=== PATIENT | male | born 1990 | race Hispanic/Latino ===

== ENCOUNTER 2022-03-13 13:49 | Emergency (ER) | payer SELFPAY ==
--- NOTE | ~2022-03-13 | CT_ITS ---
EXAMINATION: CT abdomen pelvis w con DATE: 03/13/2022 17:21 INDICATION: Left lower quadrant abdominal pain and tenderness. TECHNIQUE: Computed tomography (CT) of the abdomen and pelvis was performed with 100 mL Omnipaque-350 intravenous contrast. Automated exposure control and iterative reconstruction technique were employe d. The dose-length product was 486.89 mGy-cm. COMPARISON: None FINDINGS: Mild dependent atelectasis in bilateral lower lobes. Heart size is normal. No pericardial or pleural effusion. Liver, gallbladder, spleen, pancreas, bilateral adrenal glands and kidneys are normal. Ravindra ls including the appendix are normal. Bladder is normal. Small fat-containing right inguinal hernia. No free intraperitoneal gas or fluid. No pathologically enlarged abdominal or pelvic lymphadenopathy. Likely benign nonaggressive appearing small lytic lesion with thin sclerotic margins along the anter oinferior right femoral neck with no endosteal scalloping, periosteal reaction or other aggressive fe atures. IMPRESSION: 1. No acute intra-abdominal/pelvic process. 2. Small fat-containing right inguinal hernia. Reviewed, dictated and finalized at location A. OFF PRESS OPERATOR
[2022-03-13 14:01] VITALS: BP 120/90; PULSE 65; RESP 18; TEMP 36.3; O2SAT 100
--- NOTE | 2022-03-13 16:16 | ED.ABDPAIN ---
HPI - Abdominal Pain General Chief Complaint: Abdominal Pain Stated Complaint: abd pain Time Seen by Provider: 03/13/22 16:05 History of Present Illness HPI narrative: 31-year-old male presenting with abdominal pain. Patient states that he has had intermittent left lower quadrant pain for the last year. Unfortunately, over the last several days he has had worsening of the pain and it is now constant. States that he has also had difficulty with initiating urination. He denies dysuria or hematuria. States that he has intermittent bloating as well. Reports some nausea but no vomiting, constipation, diarrhea, melena, hematochezia. No fevers, headache, chest pain, shortness of breath, cough, flank pain. Patient is Bruneian-speaking and history was obtained using the bean snipper. Related Data Allergies Allergy/AdvReac Type Severity Reaction Status Date / Time No Known Allergies Allergy Verified 03/13/22 14:06 Review of Systems Review of Systems: All systems reviewed & are unremarkable except as noted in HPI and below Exam Narrative: GENERAL: Well-appearing, well-nourished, and in no acute distress. HEAD: Normocephalic, atraumatic. EYES: PERRLA and EOMI. ENT: Nares clear, no rhinorrhea or epistaxis. Mucous membranes moist. NECK: Supple. CHEST: Clear to auscultation. No respiratory distress. HEART: Regular rate and rhythm. No murmur heard. Normal peripheral pulses. ABDOMEN: Soft, tenderness in left lower quadrant, nondistended, normal active bowel sounds. No CVA tenderness EXTREMITIES: Normal range of motion. No edema. SKIN: Warm, dry, no rash. NEURO: No focal deficits. Alert and oriented x3. PSYCH: Normal mood and affect. Course Vital Signs Vital signs: Vital Signs Temperature 97.4 F L 03/13/22 14:01 Pulse Rate 65 03/13/22 14:01 Respiratory Rate 18 03/13/22 14:01 Blood Pressure 120/90 03/13/22 14:01 Pulse Oximetry 100 03/13/22 14:01 Oxygen Delivery Room Air 03/13/22 14:01 Temperature 97.4 F L 03/13/22 14:01 Pulse Rate 58 L 03/13/22 16:30 Respiratory Rate 28 H 03/13/22 16:30 Blood Pressure 138/81 03/13/22 16:30 Pulse Oximetry 98 03/13/22 16:30 Oxygen Delivery Room Air 03/13/22 14:01 MDM - Abdominal Pain MDM Narrative Medical decision making narrative: Patient is a 31-year-old male presenting with left lower quadrant pain. Vitals within normal limits. Patient is nontoxic and in no acute distress. Exam is remarkable for left lower quadrant tenderness. Plan for pain control, labs, CT abdomen pelvis. Blood work is unremarkable. No leukocytosis. Renal function is normal. CT abdomen pelvis shows no acute abnormalities. UA is not indicative of infection. Patient continues to complain of some left-sided abdominal pain. Advised that he follow-up with primary care as well as gastroenterology. Will prescribe dicyclomine for cramping. Appropriate return precautions given. Patient voiced understanding and is agreeable with plan. Discharged in stable condition. Lab Data 03/13/22 16:40 03/13/22 16:40 Labs: Lab Results 03/13/22 03/13/22 03/13/22 Range/Units 16:40 16:40 18:10 WBC 5.1 (4.5-10.0) K/mm3 RBC 5.71 (4.6-6.20) M/mm3 Hgb 15.0 (14.0-18.0) g/dL Hct 46.6 (42.0-52.0) % MCV 81.6 (80-100) fl MCH 26.3 (26-34) pg MCHC 32.2 (32-36) g/dl RDW 13.5 (11.5-14.5) % Plt Count 175 (150-375) k/mm3 MPV 10.3 (7.4-10.4) fl Immature Gran % (Auto) 0.2 (0-0.5) % Neut % (Auto) 48.9 (45.5-73.1) % Lymph % (Auto) 39.2 (18.3-44.2) % [place] % (Auto) 9.7 H (2.6-8.5) % Eos % (Auto) 1.6 (0-4.4) % Baso % (Auto) 0.4 (0.2-1.2) % Lymph # (Auto) 1.98 (0.9-3.2) K/mm3 [place] # (Auto) 0.5 (0.1-0.6) K/mm3 Eos # (Auto) 0.1 (0-0.3) K/mm3 Baso # (Auto) 0.0 (0.0-0.1) K/mm3 Abs Immat Gran (auto) 0.01 (0.00-0.031) K/mm3 Absolute Neuts (auto) 2.5 (1.3-6.7) K/mm3 Absolut
[2022-03-13 16:30] VITALS: BP 138/81; PULSE 58; RESP 28; O2SAT 98
[2022-03-13 16:46] LABS: Basophils Percent Auto 0.4 % (0.2-1.2); Eosinophils Absolute Auto 0.1 K/mm3 (0-0.3); Eosinophils Percent Auto 1.6 % (0-4.4); Hematocrit 46.6 % (42.0-52.0); Immature Granulocyte Absolute 0.01 K/mm3 (0.00-0.031); Immature Granulocyte Percent A 0.2 % (0-0.5); Lymphocytes Absolute Auto 1.98 K/mm3 (0.9-3.2); Lymphocytes Percent Auto 39.2 % (18.3-44.2); Mean Corpuscular HGB Conc 32.2 g/dl (32-36); Mean Corpuscular Hemoglobin 26.3 pg (26-34); Mean Corpuscular Volume 81.6 fl (80-100); Mean Platelet Volume 10.3 fl (7.4-10.4); Monocytes Absolute Auto 0.5 K/mm3 (0.1-0.6); Monocytes Percent Auto 9.7 % (2.6-8.5); Neutrophils Absolute Auto 2.5 K/mm3 (1.3-6.7); Neutrophils Percent Auto 48.9 % (45.5-73.1); Platelet Count Result 175 k/mm3 (150-375); Red Blood Count 5.71 M/mm3 (4.6-6.20); Red Cell Distribution Width 13.5 % (11.5-14.5); White Blood Count 5.1 K/mm3 (4.5-10.0)
[2022-03-13] MEDS: ONDANSETRON INJ 4 MG/2 ML VIAL IV PUSH (16:47)
[2022-03-13] MEDS: MORPHINE SULFATE (*CRX) 4 MG/ML INJ IV PUSH (16:47)
[2022-03-13] MEDS: SODIUM CHLORIDE 0.9% IV 1,000 ML 999 ML IV CONT (16:48)
[2022-03-13 17:04] LABS: Alanine Aminotransferase 60 U/L (6-50); Albumin Level 4.5 g/dL (3.5-5.1); Alkaline Phosphatase 91 U/L (38-126); Anion Gap 7 mmol/L (8-16); Aspartate Amino Transferase 44 U/L (17-59); Bilirubin,Total 0.4 mg/dL (0.2-1.3); Blood Urea Nitrogen 13 mg/dL (9-20); Calcium 8.5 mg/dL (8.4-10.2); Carbon Dioxide 27 mmol/L (22-30); Chloride 103 mmol/L (98-107); Estimated CRCL calculation 149 ml/min; Estimated Glomerular Filt Rate > 60; Glucose 96 mg/dL (65-110); Lipase 85 U/L (23-300); Potassium 3.8 mmol/L (3.4-5.0); Sodium 137 mmol/L (137-145)
[2022-03-13 18:17] LABS: Add Urine Microscopic? NO; Appearance Urine Clear (Clear); Bilirubin Urine Negative (Negative); Blood Urine Negative (Negative); Color Urine Light Yellow (Yellow); Glucose Urine UA Negative (Negative); Ketones Urine Negative (Negative); Leukocyte Esterase Ur Negative LEU/UL (Negative); Nitrate Urine Negative (Negative); Protein Urine Negative (Negative); Specific Grav Ur <= 1.005 (1.001-1.035); Urobilinogen Urine 0.2 mg/dL (<2.0); pH Urine 6.5 (5.0-9.0)
[2022-03-13 18:22] LABS: Mucus Urine Rare /lpf; RBC Urine 0-2 /hpf (0-2)
--- NOTE | 2022-03-13 19:32 | PC.NURSE ---
1909 Transferred care to YARIEL Arriaga
[2022-03-13] MEDS: KETOROLAC 15 MG/ML VIAL (*BKC) IV PUSH (20:12)
== END 2022-03-13 20:51 | disposition home or self-care (01) ==
PROVIDERS: Emergency Provider Emergency Medicine
DX: R10.32 Left lower quadrant pain (principal)
CPT/HCPCS: 36415; 74177; 80053; 81003; 83690; 85025; 96361; 96374; 96375; 99284; J0131; J1885; J2270; J2405; J7030; Q9967

== ENCOUNTER 2022-11-14 12:10 | Emergency (ER) | payer SELFPAY ==
--- NOTE | ~2022-11-14 | CT_ITS ---
EXAMINATION: CT abdomen pelvis w con INDICATION: Elevated liver function tests, elevated lipase TECHNIQUE: Computed tomographic images of the abdomen and pelvis were obtained after the administrati on of 100 cc of Omnipaque 350 intravenous contrast. The dose-length product (DLP) was 624.74 mGy-cm. Automated exposure control and iterative reconstruction technique were employed. COMPARISON: 03/13/2022 FINDINGS: Minimal dependent atelectasis is present in the lung bases. The heart size is normal. The l iver is diffusely low in attenuation when compared with the spleen, consistent with hepatic steatosis . The spleen, pancreas, gallbladder, and adrenal glands are normal. The kidneys are unremarkable. No pathologically enlarged abdominal or pelvic lymph nodes are identified. No free intraperitoneal gas o r evidence of bowel obstruction. The appendix is normal. There is a moderate-sized right inguinal her annamaria containing fat. IMPRESSION: 1. Diffuse hepatic steatosis. Reviewed, dictated and finalized at location F.
[2022-11-14 12:12] VITALS: BP 114/69; PULSE 84; RESP 18; TEMP 36.6; O2SAT 99
--- NOTE | 2022-11-14 12:58 | ED.ABDPAIN ---
HPI - Abdominal Pain General Chief Complaint: Abdominal Pain Stated Complaint: abd pain Time Seen by Provider: 11/14/22 12:54 History of Present Illness HPI narrative: Patient is a 32 year old male with no known past medical problems here with abdominal pain. He notes that he first experienced this abdominal pain in 2008 but it has been recurrent and more frequent recently. The pain is located in the left lower quadrant, nonradiating and associated with loss of appetite. He notes that it has now been persistent for the last 1 year and he is having upwards of 6-8 loose bowel movements today at this point. He denies any blood in his stool. He notes that any time he eats or drinks anything he has significant abdominal cramping followed by loose bowel movement. He denies any fever chills. He notes some excessive flatulence. No prior abdominal surgeries in the past, no abdominal distension. Patient has seen his primary care doctor for this in the last few months. They have prescribed him amitriptyline and gemfibrozil neither of which have helped his symptoms. He has never had a colonoscopy in the past. He was seen here about [address] scan was performed at that time which was unremarkable. He notes the pain is been in the same location since that time. No weight loss. No urinary symptoms. Of note, he is uninsured and this has been a barrier to him securing specialist and primary care visits in the past. Related Data Allergies Allergy/AdvReac Type Severity Reaction Status Date / Time No Known Allergies Allergy Verified 03/13/22 14:06 Review of Systems Review of Systems: CONSTITUTIONAL: Denies fever, chills, or sweats. EYES: Denies visual changes, redness, or discharge. ENT: Denies rhinorrhea, congestion, sore throat, or otalgia. CARDIOVASCULAR: Denies chest pain, palpitations, or edema. RESPIRATORY: Denies cough or dyspnea. GASTROINTESTINAL: Abdominal pain, diarrhea, no nausea or vomiting GENITOURINARY: Denies dysuria or hematuria. SKIN: Denies rash or itching. MUSCULOSKELETAL: Denies back pain, joint pain, or myalgia. NEUROLOGIC: Denies headache, numbness, or weakness. PSYCHIATRIC: Denies anxiety or depression. Exam Narrative: GENERAL: Well-appearing, well-nourished, and in no acute distress. HEAD: Normocephalic, atraumatic. EYES: PERRLA and EOMI. ENT: Nares clear. Mucous membranes moist. NECK: Supple. CHEST: Clear to auscultation. No respiratory distress. HEART: Regular rate and rhythm. Normal peripheral pulses. ABDOMEN: Soft, nontender, nondistended. No rebound or guarding. EXTREMITIES: Normal range of motion. No edema. SKIN: Warm, dry, no rash. NEURO: No focal deficits. Alert and oriented x3. PSYCH: Normal mood and affect. Course Course Emergency Course: Chart review performed. Patient seen in this ED on 03/13/22 for abdominal pain. He had a CT during that visit which was negative. Triage note shows abdominal pain x1 year, worsening pain, increased number of episodes of diarrhea. Patient seen evaluated by myself. Offered video director non profit however patient felt comfortable with my level of Vietnamese-speaking and examined history were performed in Vietnamese by myself. Patient is a 32-year-old male here with longstanding recurrent left lower quadrant abdominal pains. He has seen his primary care doctor and been prescribed several medications none of which have changed any of his symptoms. Abdomen is soft, nontender, no concerns for obvious surgical pathology at this time. The patient would likely benefit from a outpatient colonoscopy. We will do basic lab work here in the department to compare to prior labs in our system. Should anything abnormal results and lab work will reflex to a possible CT scan or ultrasound if needed. Lengthy discussion with patient and patient's mother at bedside regarding need for specialist follow-up and insurance coverage. He was provided with a packet for obtaining insur
[2022-11-14] MEDS: KETOROLAC 30 MG/ML VIAL (*BKC) IM (13:45)
[2022-11-14 13:55] LABS: Basophils Percent Auto 0.2 % (0.2-1.2); Eosinophils Absolute Auto 0.1 K/mm3 (0-0.3); Eosinophils Percent Auto 0.9 % (0-4.4); Hematocrit 47.6 % (42.0-52.0); Hemoglobin 15.2 g/dL (14.0-18.0); Immature Granulocyte Absolute 0.01 K/mm3 (0.00-0.031); Immature Granulocyte Percent A 0.2 % (0-0.5); Lymphocytes Absolute Auto 1.45 K/mm3 (0.9-3.2); Lymphocytes Percent Auto 27.3 % (18.3-44.2); Mean Corpuscular HGB Conc 31.9 g/dl (32-36); Mean Corpuscular Hemoglobin 26.4 pg (26-34); Mean Corpuscular Volume 82.8 fl (80-100); Mean Platelet Volume 9.7 fl (7.4-10.4); Monocytes Absolute Auto 0.4 K/mm3 (0.1-0.6); Monocytes Percent Auto 8.3 % (2.6-8.5); Neutrophils Absolute Auto 3.4 K/mm3 (1.3-6.7); Neutrophils Percent Auto 63.1 % (45.5-73.1); Platelet Count Result 183 k/mm3 (150-375); Red Blood Count 5.75 M/mm3 (4.6-6.20); Red Cell Distribution Width 13.2 % (11.5-14.5); White Blood Count 5.3 K/mm3 (4.5-10.0)
[2022-11-14 13:57] LABS: Add Urine Microscopic? NO; Appearance Urine Clear (Clear); Bilirubin Urine Negative (Negative); Blood Urine Negative (Negative); Color Urine Yellow (Yellow); Glucose Urine UA Negative (Negative); Ketones Urine Negative (Negative); Leukocyte Esterase Ur Negative LEU/UL (Negative); Nitrate Urine Negative (Negative); Protein Urine Negative (Negative); Specific Grav Ur 1.027 (1.001-1.035); Urobilinogen Urine 0.2 mg/dL (<2.0); pH Urine 5.5 (5.0-9.0)
[2022-11-14 14:06] LABS: Alanine Aminotransferase 99 U/L (6-50); Albumin Level 4.8 g/dL (3.5-5.1); Alkaline Phosphatase 116 U/L (38-126); Anion Gap 11 mmol/L (8-16); Aspartate Amino Transferase 75 U/L (17-59); Bilirubin,Total 0.5 mg/dL (0.2-1.3); Blood Urea Nitrogen 12 mg/dL (9-20); Calcium 8.9 mg/dL (8.4-10.2); Carbon Dioxide 20 mmol/L (22-30); Chloride 107 mmol/L (98-107); Estimated CRCL calculation 133 ml/min; Estimated Glomerular Filt Rate > 60; Glucose 100 mg/dL (65-110); Lipase 392 U/L (23-300); Potassium 4.5 mmol/L (3.4-5.0); Sodium 138 mmol/L (137-145)
[2022-11-14 16:13] VITALS: BP 109/80; PULSE 83; RESP 20; O2SAT 98
== END 2022-11-14 18:04 | disposition home or self-care (01) ==
PROVIDERS: Emergency Provider Student in an Organized Health Care Education/Training Program
DX: K76.0 Fatty (change of) liver, not elsewhere classified (principal); R10.84 Generalized abdominal pain
CPT/HCPCS: 36415; 74177; 80053; 81003; 83690; 85025; 96372; 99284; J1885; Q9967

== ENCOUNTER 2023-04-04 05:23 | Emergency (ER) | payer SELFPAY ==
--- NOTE | ~2023-04-04 | CT_ITS ---
EXAMINATION: CT abdomen pelvis w con DATE: 04/04/2023 10:42 INDICATION: Left abdominal pain. TECHNIQUE: Computed tomography (CT) of the abdomen and pelvis was performed with 100 mL Omnipaque 350 intravenous contrast. Automated exposure control and iterative reconstruction technique were employe d. The dose-length product was 594.57 mGy-cm. COMPARISON: CT abdomen and pelvis 11/14/2022 FINDINGS: The visualized portions of the lung bases demonstrate a 4 mm nodule in right lower lobe, li jasper benign. No pleural effusion. The heart size is normal. No pericardial effusion. The liver and sp raghu are normal. The gallbladder is distended, likely secondary to fasting. The pancreas, adrenal gla nds, and kidneys are normal. There is a direct right inguinal hernia containing fat. There are no dil ated loops of bowel. The appendix is normal. There are no pathologically enlarged lymph nodes. There is no free intraperitoneal fluid. There is mild lumbar spondylosis. IMPRESSION: 1. Direct right inguinal hernia containing fat. Reviewed, dictated and finalized at location A. RANCE SALES PRODUCER
[2023-04-04 05:31] VITALS: BP 121/7; PULSE 60; RESP 16; TEMP 36.4; O2SAT 99
[2023-04-04 06:33] LABS: Basophils Percent Auto 0.4 % (0.2-1.2); Eosinophils Absolute Auto 0.1 K/mm3 (0-0.3); Eosinophils Percent Auto 1.6 % (0-4.4); Hematocrit 47.4 % (42.0-52.0); Hemoglobin 14.8 g/dL (14.0-18.0); Immature Granulocyte Absolute 0.02 K/mm3 (0.00-0.031); Immature Granulocyte Percent A 0.4 % (0-0.5); Lymphocytes Absolute Auto 1.69 K/mm3 (0.9-3.2); Lymphocytes Percent Auto 34.1 % (18.3-44.2); Mean Corpuscular HGB Conc 31.2 g/dl (32-36); Mean Corpuscular Hemoglobin 26.1 pg (26-34); Mean Corpuscular Volume 83.5 fl (80-100); Mean Platelet Volume 10.2 fl (7.4-10.4); Monocytes Absolute Auto 0.4 K/mm3 (0.1-0.6); Monocytes Percent Auto 8.5 % (2.6-8.5); Neutrophils Absolute Auto 2.7 K/mm3 (1.3-6.7); Platelet Count Result 178 k/mm3 (150-375); Red Blood Count 5.68 M/mm3 (4.6-6.20); Red Cell Distribution Width 13.6 % (11.5-14.5)
[2023-04-04 06:33] LABS: Appearance Urine Clear (Clear); Bilirubin Urine Negative (Negative); Blood Urine Negative (Negative); Color Urine Yellow (Yellow); Glucose Urine UA Negative (Negative); Ketones Urine Negative (Negative); Leukocyte Esterase Ur Negative LEU/UL (Negative); Nitrate Urine Negative (Negative); Protein Urine Negative (Negative); Specific Grav Ur 1.022 (1.001-1.035); Urobilinogen Urine 0.2 mg/dL (<2.0)
[2023-04-04 06:45] LABS: Alanine Aminotransferase 50 U/L (6-50); Albumin Level 4.1 g/dL (3.5-5.1); Alkaline Phosphatase 95 U/L (38-126); Anion Gap 8 mmol/L (8-16); Aspartate Amino Transferase 38 U/L (17-59); Bilirubin,Total 0.4 mg/dL (0.2-1.3); Blood Urea Nitrogen 11 mg/dL (9-20); Calcium 8.6 mg/dL (8.4-10.2); Carbon Dioxide 25 mmol/L (22-30); Chloride 104 mmol/L (98-107); Estimated CRCL calculation 133 ml/min; Estimated Glomerular Filt Rate > 60; Glucose 105 mg/dL (65-110); Lipase 95 U/L (23-300); Potassium 4.1 mmol/L (3.4-5.0); Sodium 137 mmol/L (137-145)
[2023-04-04 06:48] LABS: Add Urine Microscopic? NO
--- NOTE | 2023-04-04 09:31 | ED.GENADULT ---
HPI - General Adult General Chief complaint: Abdominal Pain <Sheryl Phan July, SERVICES ACCOUNT MANAGER - Last Filed: 04/04/23 09:35> Stated complaint: left abd pain <Sheryl hPan July, - Last Filed: 04/04/23 09:35> Time Seen by Provider: 04/04/23 13:55 <Sheryl Phan July, - Last Filed: 04/04/23 09:35> History of Present Illness HPI narrative: Austin Colon is a 32 y/o French speaking male, through the burlesque dancer pt reports he is having left lower abdominal pain for two weeks that has been getting worse. Reports his last BM was today/ remorts some nausea after eating but has not vomited. Denies fever/chills. Patient Denies PMHx and denies taking any medications daily <Sheryl Phan July, - Last Filed: 04/04/23 09:35> Austin Colon is a 32 y/o French speaking male, through the burlesque dancer pt reports he is having left lower abdominal pain for two weeks that has been getting worse. Reports his last BM was today/ remorts some nausea after eating but has not vomited. Denies fever/chills. Patient Denies PMHx and denies taking any medications daily Patient is reporting cramping left-sided pain that is been intermittent over last year. He had a colonoscopy 3 months ago that showed colonic inflammation. He is concerned it has returned. He has no diarrhea. No pain in the right inguinal region. He sometimes feels constipated. No urinary symptoms. <Virgilio Plunkett MD - Last Filed: 04/04/23 14:22> Related Data Allergies/adverse reactions: Allergies Allergy/AdvReac Type Severity Reaction Status Date / Time No Known Allergies Allergy Verified 03/13/22 14:06 <Sheryl Phan July,N - Last Filed: 04/04/23 09:35> Review of Systems Review of Systems: All systems reviewed & are unremarkable except as noted in HPI and below <Virgilio Plunkett MD - Last Filed: 04/04/23 14:22> Constitutional: Constitutional: Reports no additional constitutional complaints <Virgilio Plunkett MD - Last Filed: 04/04/23 14:22> ENT: Reports system reviewed and no additional complaints, except as documented <Virgilio Plunkett MD - Last Filed: 04/04/23 14:22> Cardiovascular: Cardiovascular: Reports no additional cardiovascular complaints <Virgilio Plunkett MD - Last Filed: 04/04/23 14:22> Gastrointestinal: Gastrointestinal: Reports abdominal pain, Reports bloating, Reports constipation, Denies diarrhea, Denies nausea and Denies vomiting <Virgilio Plunkett MD - Last Filed: 04/04/23 14:22> Genitourinary: Genitourinary: Reports no additional male genitourinary complaints <Virgilio Plunkett MD - Last Filed: 04/04/23 14:22> PMFSH Past Medical History Medical History: Medical History (Updated 04/04/23 @ 14:20 by Virgilio Plunkett MD) Hyperlipidemia <Sheryl Orantes, SERVICES ACCOUNT MANAGER - Last Filed: 04/04/23 09:35> Surgical History Surgical History: Surgical History (Updated 04/04/23 @ 14:20 by Virgilio Plunkett MD) H/O inguinal hernia repair right-sided History of colonoscopy <Sheryl Orantes, SERVICES ACCOUNT MANAGER - Last Filed: 04/04/23 09:35> Exam Narrative: GENERAL: Well-appearing, well-nourished, and in no acute distress. HEAD: Normocephalic, atraumatic. ENT: Mucous membranes moist. NECK: Supple. CHEST: Clear to auscultation. No respiratory distress. HEART: Regular rate and rhythm. Normal peripheral pulses. ABDOMEN: Soft, nontender, nondistended. mild discomfort over right inguinal hernia. EXTREMITIES: Normal range of motion. No edema. SKIN: Warm, dry, no rash. NEURO: Alert and oriented x3. PSYCH: Normal mood and affect. <Virgilio Plunkett MD - Last Filed: 04/04/23 14:22> Course Course Emergency Course: Unremarkable imaging / exam/ labs. Discussed discharge diagnosis and treatment plan. Patient verbalized understanding. <Virgilio Plunkett MD - Last Filed: 04/04/23 14:22> Vital Signs Vital signs: Vital Signs Temperature 97.5 F L 04/04/23 05:31 Pulse Rate 60 04/04/23 05:31 Respiratory R
[2023-04-04 09:48] VITALS: BP 127/85; PULSE 66; RESP 15; O2SAT 100
[2023-04-04 09:59] VITALS: BP 137/95; PULSE 61; RESP 16; TEMP 36.1; O2SAT 99
[2023-04-04] MEDS: DICYCLOMINE HCL INJ 20 MG/2 ML VIAL IM (15:14)
[2023-04-04 15:15] VITALS: BP 137/86; PULSE 69; RESP 15; O2SAT 100
== END 2023-04-04 15:16 | disposition home or self-care (01) ==
PROVIDERS: Emergency Medicine; Emergency Provider Emergency Medicine
DX: K40.90 Unilateral inguinal hernia, without obstruction or gangrene, not specified as recurrent (principal); R10.32 Left lower quadrant pain; E78.5 Hyperlipidemia, unspecified
CPT/HCPCS: 36415; 74177; 80053; 81003; 83690; 85025; 96372; 99284; J0500; Q9967

== ENCOUNTER 2024-01-14 05:04 | Emergency (ER) | payer SELFPAY ==
--- NOTE | ~2024-01-14 | CT_ITS ---
EXAMINATION: CT abdomen pelvis w con DATE: 01/14/2024 06:26 INDICATION: Abdomen pain TECHNIQUE: Computed tomography (CT) of the abdomen and pelvis was performed with 100 cc Omnipaque 350 intravenous contrast. The dose-length product was 678.48 mGy-cm. Automated exposure control and iter ative reconstruction technique were employed. COMPARISON: None. FINDINGS: Lung bases unremarkable. No significant pleural or pericardial effusion. Fatty infiltration of the liver. The spleen, pancreas, adrenal glands and kidneys are unremarkable. Gallbladder is pres ent. There is mild bladder wall thickening. There is a right inguinal hernia. Nonobstructive bowel ga s pattern. No significant vascular abnormality. No lymphadenopathy. No free air or free fluid. Mild l ower thoracic and lumbar spondylosis. IMPRESSION: 1. Bladder wall thickening, suspicious for cystitis. Correlate clinically. 2: Right inguinal hernia containing fat. Reviewed, dictated and finalized at location B.
[2024-01-14 05:10] VITALS: BP 122/75; PULSE 62; RESP 28; TEMP 36.4; O2SAT 100
--- NOTE | 2024-01-14 05:17 | PC.NURSE ---
northern irish speaking pt will need ipad for diplomatic interpreter services.
--- NOTE | 2024-01-14 05:19 | PC.NURSE ---
edp dr jung at bedside for assessment.
--- NOTE | 2024-01-14 05:25 | ED.ABDPAIN ---
HPI - Abdominal Pain General Chief Complaint: Abdominal Pain Stated Complaint: abd pain Time Seen by Provider: 01/14/24 05:16 Source: patient Mode of arrival: ambulatory Limitations: no limitations History of Present Illness HPI narrative: 33-year-old here for lower abdominal pain onset over a year ago. He has been here multiple times for the same symptoms. Has not followed up. Reports 2-3 bowel movements today. His concern is colon Is inflamed. No urinary issues. Related Data Allergies Allergy/AdvReac Type Severity Reaction Status Date / Time No Known Allergies Allergy Verified 01/14/24 05:18 Review of Systems Review of Systems: All systems reviewed & are unremarkable except as noted in HPI and below PMFSH Past Medical History Medical History Hyperlipidemia Surgical History Surgical History H/O inguinal hernia repair right-sided History of colonoscopy Exam Narrative: Constitutional: Generally well appearing, no acute distress Head: Atraumatic, no deformities. Eyes: Pupils equal, round, and reactive to light. Neck: Supple, no tracheal deviation, no JVD. ENMT: Mucous membranes moist Cardiovascular: S1, S2 auscultated. No murmurs, rubs, or gallops. No S3/S4. Normal Distal pulses. No peripheral edema. Respiratory: Lung sounds equal. No wheezes, rales, or rhonchi. Gastrointestinal: Abdomen was soft with very mild tenderness in the low abdomen. Non-distended. No rebound or guarding. Genitourinary: Deferred Musculoskeletal: Normal muscle tone and bulk. No obvious deformities or tenderness over extremities. Skin: No rashes. Neurological: Strength 5/5 in extremities. Cranial nerves I-XII grossly intact. Distal sensation intact. Mental Status: Awake, alert and oriented x3. Follows commands Course Vital Signs Vital signs: Vital Signs Temperature 36.4 C 01/14/24 05:10 Pulse Rate 62 01/14/24 05:10 Respiratory Rate 28 H 01/14/24 05:10 Blood Pressure 122/75 01/14/24 05:10 Pulse Oximetry 100 01/14/24 05:10 Oxygen Delivery Room Air 01/14/24 05:10 Temperature 36.4 C 01/14/24 05:10 Pulse Rate 63 01/14/24 06:30 Respiratory Rate 16 01/14/24 06:30 Blood Pressure 112/49 L 01/14/24 06:30 Pulse Oximetry 100 01/14/24 06:30 Oxygen Delivery Room Air 01/14/24 05:10 MDM - Abdominal Pain MDM Narrative Medical decision making narrative: 33-year-old here with low abdominal pain for the last 1 year duration. Worsening over the last few days which is why he is here. Exam shows no abnormal vital signs. Mild tenderness to palpation in the lower abdomen. Nonspecific. Obtaining abdominal workup. Workup consistent with cystitis. Given dose of ceftriaxone here. Will be discharged with ciprofloxacin. Pt feeling improved and would like to go home at this point. Return precautions were given to the patient include any new or worsening symptoms or development of and not limited to any chest pain, shortness of breath, lightheadedness, abdominal pain, fevers, chills. Patient understands and agrees. They are to follow-up with her PCP. All questions were answered. I reviewed the patient's vital signs, history, allergies, and labs and imaging workup. Lab Data 01/14/24 05:20 01/14/24 05:20 Labs: Lab Results 01/14/24 01/14/24 Range/Units 05:20 05:33 WBC 5.8 (4.5-10.0) K/mm3 RBC 5.66 (4.6-6.20) M/mm3 Hgb 14.9 (14.0-18.0) g/dL Hct 46.1 (42.0-52.0) % MCV 81.4 (80-100) fl MCH 26.3 (26-34) pg MCHC 32.3 (32-36) g/dl RDW 13.1 (11.5-14.5) % Plt Count 208 (150-375) k/mm3 MPV 10.6 H (7.4-10.4) fl Immature Gran % (Auto) 0.2 (0-0.5) % Neut % (Auto) 57.2 (45.5-73.1) % Lymph % (Auto) 32.2 (18.3-44.2) % [place] % (Auto) 9.2 H (2.6-8.5) % Eos % (Auto) 0.9 (0-4.4) % Baso % (Auto) 0.3 (0.2-1.
[2024-01-14 05:29] LABS: Basophils Percent Auto 0.3 % (0.2-1.2); Eosinophils Absolute Auto 0.1 K/mm3 (0-0.3); Eosinophils Percent Auto 0.9 % (0-4.4); Hematocrit 46.1 % (42.0-52.0); Hemoglobin 14.9 g/dL (14.0-18.0); Immature Granulocyte Absolute 0.01 K/mm3 (0.00-0.031); Immature Granulocyte Percent A 0.2 % (0-0.5); Lymphocytes Absolute Auto 1.88 K/mm3 (0.9-3.2); Lymphocytes Percent Auto 32.2 % (18.3-44.2); Mean Corpuscular HGB Conc 32.3 g/dl (32-36); Mean Corpuscular Hemoglobin 26.3 pg (26-34); Mean Corpuscular Volume 81.4 fl (80-100); Mean Platelet Volume 10.6 fl (7.4-10.4); Monocytes Absolute Auto 0.5 K/mm3 (0.1-0.6); Monocytes Percent Auto 9.2 % (2.6-8.5); Neutrophils Absolute Auto 3.3 K/mm3 (1.3-6.7); Neutrophils Percent Auto 57.2 % (45.5-73.1); Platelet Count Result 208 k/mm3 (150-375); Red Blood Count 5.66 M/mm3 (4.6-6.20); Red Cell Distribution Width 13.1 % (11.5-14.5); White Blood Count 5.8 K/mm3 (4.5-10.0)
[2024-01-14 05:41] LABS: Add Urine Microscopic? NO; Appearance Urine Clear (Clear); Bilirubin Urine Negative (Negative); Blood Urine Negative (Negative); Color Urine Yellow (Yellow); Glucose Urine UA Negative (Negative); Ketones Urine Negative (Negative); Leukocyte Esterase Ur Negative LEU/UL (Negative); Nitrate Urine Negative (Negative); Protein Urine Negative (Negative); Specific Grav Ur 1.018 (1.001-1.035); Urobilinogen Urine 0.2 mg/dL (<2.0); pH Urine 5.5 (5.0-9.0)
[2024-01-14 06:02] LABS: Alanine Aminotransferase 48 U/L (6-50); Albumin Level 4.5 g/dL (3.5-5.1); Alkaline Phosphatase 84 U/L (38-126); Anion Gap 9 mmol/L (4-12); Aspartate Amino Transferase 53 U/L (17-59); Bilirubin,Total 0.8 mg/dL (0.2-1.3); Blood Urea Nitrogen 16 mg/dL (9-20); Calcium 8.9 mg/dL (8.4-10.2); Carbon Dioxide 26 mmol/L (22-30); Chloride 103 mmol/L (98-107); Estimated CRCL calculation 142 ml/min; Estimated Glomerular Filt Rate > 60; Glucose 103 mg/dL (65-110); Lipase 132 U/L (23-300); Potassium 4.5 mmol/L (3.4-5.0); Sodium 138 mmol/L (137-145)
[2024-01-14 06:30] VITALS: BP 112/49; PULSE 63; RESP 16; O2SAT 100
== END 2024-01-14 07:52 | disposition home or self-care (01) ==
PROVIDERS: Emergency Provider Emergency Medicine
DX: N30.90 Cystitis, unspecified without hematuria (principal); E78.5 Hyperlipidemia, unspecified; K40.90 Unilateral inguinal hernia, without obstruction or gangrene, not specified as recurrent
CPT/HCPCS: 36415; 74177; 80053; 81003; 83690; 85025; 96365; 99284; J0696; Q9967

== ENCOUNTER 2024-05-11 06:32 | Emergency (ER) | payer SELFPAY ==
--- NOTE | ~2024-05-11 | CT_ITS ---
EXAMINATION: CT abdomen pelvis w con DATE: 05/11/2024 07:43 INDICATION: Left lower quadrant abdominal pain. TECHNIQUE: Computed tomography (CT) of the abdomen and pelvis was performed with 100 mL Omnipaque 350 intravenous contrast. Automated exposure control and iterative reconstruction technique were employe d. The dose-length product was 662.16 mGy-cm. COMPARISON: CT abdomen and pelvis 02/14/2024 FINDINGS: The visualized portions of the lung bases demonstrate mild atelectasis. No pleural effusion . The heart size is normal. No pericardial effusion. The liver, gallbladder, spleen, pancreas, adrena l glands, and kidneys are normal. There is a chronic right inguinal hernia containing fat that tether s the bladder. The appendix is normal. There are no dilated loops of bowel. There are no pathological ly enlarged lymph nodes. There is no free intraperitoneal fluid. There is mild thoracic and lumbar sp ondylosis. IMPRESSION: 1. Chronic right inguinal hernia containing fat. Reviewed, dictated and finalized at location A. PATCHER
[2024-05-11 06:36] VITALS: BP 125/72; PULSE 60; RESP 20; TEMP 36.7; O2SAT 100
[2024-05-11 07:12] LABS: Basophils Percent Auto 0.2 % (0.2-1.2); Eosinophils Absolute Auto 0.1 K/mm3 (0-0.3); Eosinophils Percent Auto 1.3 % (0-4.4); Hematocrit 45.2 % (42.0-52.0); Hemoglobin 14.5 g/dL (14.0-18.0); Immature Granulocyte Absolute 0.02 K/mm3 (0.00-0.031); Immature Granulocyte Percent A 0.4 % (0-0.5); Lymphocytes Absolute Auto 1.53 K/mm3 (0.9-3.2); Lymphocytes Percent Auto 33.5 % (18.3-44.2); Mean Corpuscular HGB Conc 32.1 g/dl (32-36); Mean Corpuscular Hemoglobin 26.1 pg (26-34); Mean Corpuscular Volume 81.4 fl (80-100); Monocytes Absolute Auto 0.4 K/mm3 (0.1-0.6); Neutrophils Absolute Auto 2.5 K/mm3 (1.3-6.7); Neutrophils Percent Auto 55.6 % (45.5-73.1); Platelet Count Result 183 k/mm3 (150-375); Red Blood Count 5.55 M/mm3 (4.6-6.20); Red Cell Distribution Width 13.7 % (11.5-14.5); White Blood Count 4.6 K/mm3 (4.5-10.0)
[2024-05-11 07:22] LABS: Alanine Aminotransferase 53 U/L (6-50); Albumin Level 4.3 g/dL (3.5-5.1); Alkaline Phosphatase 86 U/L (38-126); Anion Gap 8 mmol/L (4-12); Aspartate Amino Transferase 45 U/L (17-59); Bilirubin,Total 0.7 mg/dL (0.2-1.3); Blood Urea Nitrogen 19 mg/dL (9-20); Calcium 8.9 mg/dL (8.4-10.2); Carbon Dioxide 26 mmol/L (22-30); Chloride 105 mmol/L (98-107); Estimated Glomerular Filt Rate > 60; Glucose 103 mg/dL (65-110); Lipase 72 U/L (23-300); Potassium 4.2 mmol/L (3.4-5.0); Sodium 139 mmol/L (137-145)
[2024-05-11 07:45] LABS: Add Urine Microscopic? NO; Appearance Urine Clear (Clear); Bilirubin Urine Negative (Negative); Blood Urine Negative (Negative); Color Urine Yellow (Yellow); Glucose Urine UA Negative (Negative); Ketones Urine Negative (Negative); Leukocyte Esterase Ur Negative LEU/UL (Negative); Nitrate Urine Negative (Negative); Protein Urine Negative (Negative); Specific Grav Ur 1.025 (1.001-1.035); Urobilinogen Urine 0.2 mg/dL (<2.0)
[2024-05-11] MEDS: ONDANSETRON INJ 4 MG/2 ML VIAL IV PUSH (07:46)
[2024-05-11] MEDS: SODIUM CHLORIDE 0.9% IV 1,000 ML 150 ML IV CONT (07:46)
[2024-05-11] MEDS: MORPHINE SULFATE (*CRX) 4 MG/ML INJ IV PUSH (07:46)
[2024-05-11 07:57] VITALS: BP 122/75; PULSE 65; RESP 18; TEMP 36.4; O2SAT 99
--- NOTE | 2024-05-11 09:26 | ED_ITS ---
HPI - Abdominal Pain General Chief Complaint: Abdominal Pain Stated Complaint: lower left abd pain Time Seen by Provider: 05/11/24 07:05 Source: patient Mode of arrival: ambulatory Limitations: language barrier History of Present Illness HPI narrative: 33-year-old otherwise healthy here with the complaints of left lower abdominal pain with started a day ago. He denies any nausea, vomiting. No history of fever or chills. Patient states that he has similar pain in month of February of last year. MD elicited complaint: abdominal pain Pertinent past history: none Onset (ago): day(s) (1) Location: LLQ Severity: moderate Quality: aching Radiation: none Migration to: no migration Exacerbating factors: nothing Relieving factors: nothing Related Data Allergies Allergy/AdvReac Type Severity Reaction Status Date / Time No Known Allergies Allergy Verified 05/11/24 07:34 Review of Systems 2 Review of Systems: All systems reviewed & are unremarkable except as noted in HPI and below Constitutional: Constitutional: Reports no additional constitutional complaints Eyes: Eyes: Reports no additional eye complaints ENT: Reports system reviewed and no additional complaints, except as documented Cardiovascular: Cardiovascular: Reports no additional cardiovascular complaints Respiratory: Respiratory: Reports no additional respiratory complaints Gastrointestinal: Gastrointestinal: Reports as per HPI Musculoskeletal: Musculoskeletal: Reports no additional musculoskeletal complaints Neurologic: Reports system reviewed and no additional complaints, except as documented Psychiatric: Psychiatric: Reports no additional psychiatric complaints PMFSH Past Medical History Medical History Hyperlipidemia Surgical History Surgical History H/O inguinal hernia repair right-sided History of colonoscopy Exam 2 Narrative: GENERAL: Well-appearing, well-nourished, and in no acute distress. HEAD: Normocephalic, atraumatic. EYES: PERRLA and EOMI. NECK: Supple. CHEST: Clear to auscultation. No respiratory distress. HEART: Regular rate and rhythm. No murmur heard. Normal peripheral pulses. ABDOMEN: Soft, mild tenderness in the left lower quadrant, nondistended, normal active bowel sounds. EXTREMITIES: Normal range of motion. No edema. SKIN: Warm, dry, no rash. NEURO: No focal deficits. Alert and oriented x3. PSYCH: Normal mood and affect. Course Course Emergency Course: Patient feeling comfortable. Informed him about his lab work and CT findings cause of his pain is unknown. Advised to follow with his primary doctor. Vital Signs Vital signs: Vital Signs Temperature 36.7 C 05/11/24 06:36 Pulse Rate 60 05/11/24 06:36 Respiratory Rate 20 05/11/24 06:36 Blood Pressure 125/72 05/11/24 06:36 Pulse Oximetry 100 05/11/24 06:36 Oxygen Delivery Room Air 05/11/24 06:36 Temperature 36.4 C 05/11/24 07:57 Pulse Rate 65 05/11/24 07:57 Respiratory Rate 18 05/11/24 07:57 Blood Pressure 122/75 05/11/24 07:57 Pulse Oximetry 99 05/11/24 07:57 Oxygen Delivery Room Air 05/11/24 06:36 MDM - Abdominal Pain Differential Diagnosis Differential diagnosis: Likely abdominal pain, calculus of kidney, diverticulitis, gastroenteritis and small bowel obstruction Medical Records Attestation: I reviewed the patient's medical records. Lab Data Attestation: I reviewed the patient's lab results. 05/11/24 07:05 05/11/24 07:05 Labs: Lab Results 05/11/24 05/11/24 Range/Units 07:05 07:36 WBC 4.6 (4.5-10.0) K/mm3 RBC 5.55 (4.6-6.20) M/mm3 Hgb 14.5 (14.0-18.0) g/dL Hct 45.2 (42.0-52.0) % MCV 81.4 (80-100) fl MCH 26.1 (26-34) pg MCHC 32.1 (32-36) g/dl RDW 13.7 (11.5-14.5) % Plt Count 183 (150-375) k/mm3 MPV 10.0 (7.4-10.4) fl Immature Gran % (Auto) 0.4 (0-0.5) % Neut % (Auto) 55.6 (45.5-73.1) % Lymph % (Auto) 33.5 (18.3-44.2) % [place] % (Auto) 9.0 H (2.6-8.5) % Eos % (Auto) 1.3 (0-4.4) % Baso % (Auto) 0.2 (0.2-1.2) % Lymph # (Auto) 1.53 (0.9-3.2) K/mm3 [place] # (Auto) 0.4 (0.1-0.6) K/mm3 Eos # (Auto) 0.1 (0-0.3) K/mm3 Baso # (Auto) 0.0 (0.0-0.1) K/mm3 Abs Immat Gran (auto) 0.02 (0.00-0.031) K/mm3 Absolute Neuts (auto) 2.5 (1.3-6.7) K/mm3 Absolute Nucleated RBC 0.000 (0.0-0.012) K/mm3 Nucleated RBC % 0.0 (0.0-0.2) % Sodium 139 (137-145) mmol/L Potassium 4.2 (3.4-5.0) mmol/L Chloride 105 (98-107) mmol/L Carbon Dioxide 26 (22-30) mmol/L Anion Gap 8 (4-12) mmol/L BUN 19 (9-20) mg/dL Creatinine 0.53 L (0.7-1.3) mg/dL Estim Creat Clear Calc Not Reportable Estimated GFR > 60 (59 - ) Glucose 103 (65-110) mg/dL Calcium 8.9 (8.4-10.2) mg/dL Total Bilirubin 0.7 (0.2-1.3) mg/dL AST 45 (17-59) U/L ALT 53 H (6-50) U/L Alkaline Phosphatase 86 (38-126) U/L Total Protein 7.0 (6.3-8.2) g/dL Albumin 4.3 (3.5-5.1) g/dL Lipase 72 (23-300) U/L Urine Color Yellow (Yellow) Urine Appearance Clear (Clear) Urine pH 6.0 (5.0-9.0) Ur Specific [place] 1.025 (1.001-1.035) Urine Protein Negative (Negative) mg/dL Urine Glucose (UA) Negative (Negative) mg/dL Urine Ketones Negative (Negative) mg/dL Ur Blood (Man) Negative (Negative) Urine Nitrate Negative (Negative) Urine Bilirubin Negative (Negative) Urine Urobilinogen 0.2 (<2.0) mg/dL Leukocyte Esterase Rfl Negative (Negative) SARAH/UL Imaging Data Radiologist's impression: ITS Impressions Abdomen/Pelvis CT 05/11/24 07:59 IMPRESSION: 1. Chronic right inguinal hernia containing fat. Discharge Plan Discharge Clinical Impression: Abdominal pain, acute, left lower quadrant Patient Disposition: Home, Self-Care Condition: Stable Instructions: Abdominal Pain (ED) Patient Language: Cuban Prescriptions: New ibuprofen 600 mg tablet 600 mg PO TID PRN (Reason: pain) Qty: 20 0RF Follow-up/Referrals: Abraham Burks MD [Physician] - UNKNOWN,DOCTOR [Primary Care Provider] - Time of Disposition: 09:31
[2024-05-11 09:40] VITALS: BP 119/76; PULSE 60; RESP 18; TEMP 36.4; O2SAT 99
== END 2024-05-11 10:13 | disposition home or self-care (01) ==
PROVIDERS: Emergency Provider Family Medicine
DX: R10.32 Left lower quadrant pain (principal); E78.5 Hyperlipidemia, unspecified; K40.90 Unilateral inguinal hernia, without obstruction or gangrene, not specified as recurrent
CPT/HCPCS: 36415; 74177; 80053; 81003; 83690; 85025; 96361; 96374; 96375; 99284; J2270; J2405; J7030; Q9967

== ENCOUNTER 2024-08-08 11:26 | Emergency (ER) | payer SELFPAY ==
--- NOTE | ~2024-08-08 | CT_ITS ---
EXAMINATION: CT abdomen pelvis w con DATE: 08/08/2024 12:55 INDICATION: Right-sided abdominal pain TECHNIQUE: Computed tomography (CT) of the abdomen and pelvis was performed with 100 mL Omnipaque-350 intravenous contrast. Automated exposure control and iterative reconstruction technique were employe d. The dose-length product was 498.97 mGy-cm. COMPARISON: 05/11/2024 FINDINGS: Mild dependent atelectasis in bilateral lower lobes. Heart size is normal. No pericardial or pleural effusion. Mild diffuse hepatic steatosis. Gallbladder, spleen, pancreas, bilateral adrenal glands and kidneys are normal. There are few sigmoid diverticula without adjacent inflammatory stranding to sug gest diverticulitis. Small bowel and appendix are normal. Bladder is normal. Prostatomegaly. Moderate -sized fat-containing direct right inguinal hernia. No free intraperitoneal gas or fluid. No patholog ically enlarged abdominal or pelvic lymphadenopathy. Mild thoracic and lumbar spondylosis. IMPRESSION: 1. Chronic moderate-sized fat-containing right hernia. No acute intra-abdominal/pelvic process. Reviewed, dictated and finalized at location A. IMPRESSION: 1. Chronic moderate-sized fat-containing right hernia. No acute intra-abdominal /pelvic process.
[2024-08-08 11:26] VITALS: BP 110/73; PULSE 81; RESP 16; TEMP 36.6; O2SAT 100
[2024-08-08 11:55] LABS: Basophils Percent Auto 0.5 % (0.2-1.2); Eosinophils Absolute Auto 0.1 K/mm3 (0-0.3); Eosinophils Percent Auto 1.2 % (0-4.4); Hematocrit 42.5 % (42.0-52.0); Immature Granulocyte Absolute 0.01 K/mm3 (0.00-0.031); Immature Granulocyte Percent A 0.2 % (0-0.5); Lymphocytes Absolute Auto 1.75 K/mm3 (0.9-3.2); Lymphocytes Percent Auto 41.3 % (18.3-44.2); Mean Corpuscular HGB Conc 32.9 g/dl (32-36); Mean Corpuscular Hemoglobin 26.3 pg (26-34); Mean Corpuscular Volume 79.9 fl (80-100); Mean Platelet Volume 9.9 fl (7.4-10.4); Monocytes Absolute Auto 0.5 K/mm3 (0.1-0.6); Monocytes Percent Auto 11.8 % (2.6-8.5); Neutrophils Absolute Auto 1.9 K/mm3 (1.3-6.7); Platelet Count Result 173 k/mm3 (150-375); Red Blood Count 5.32 M/mm3 (4.6-6.20); Red Cell Distribution Width 13.5 % (11.5-14.5); White Blood Count 4.2 K/mm3 (4.5-10.0)
[2024-08-08 12:14] LABS: Alanine Aminotransferase 41 U/L (6-50); Albumin Level 4.4 g/dL (3.5-5.1); Alkaline Phosphatase 88 U/L (38-126); Anion Gap 9 mmol/L (4-12); Aspartate Amino Transferase 46 U/L (17-59); Bilirubin,Total 0.5 mg/dL (0.2-1.3); Blood Urea Nitrogen 14 mg/dL (9-20); Calcium 8.7 mg/dL (8.4-10.2); Carbon Dioxide 24 mmol/L (22-30); Chloride 104 mmol/L (98-107); Estimated Glomerular Filt Rate > 60; Glucose 97 mg/dL (65-110); Lipase 76 U/L (23-300); Potassium 3.9 mmol/L (3.4-5.0); Sodium 137 mmol/L (137-145)
[2024-08-08 12:30] LABS: Add Urine Microscopic? NO; Appearance Urine Clear (Clear); Bilirubin Urine Negative (Negative); Blood Urine Negative (Negative); Color Urine Yellow (Yellow); Glucose Urine UA Negative (Negative); Ketones Urine Negative (Negative); Leukocyte Esterase Ur Negative LEU/UL (Negative); Nitrate Urine Negative (Negative); Protein Urine Negative (Negative); Specific Grav Ur 1.018 (1.001-1.035); pH Urine 5.5 (5.0-9.0)
--- NOTE | 2024-08-08 12:42 | ED_ITS ---
HPI - Abdominal Pain General Chief Complaint: Abdominal Pain Stated Complaint: abdominal pain Time Seen by Provider: 08/08/24 12:00 History of Present Illness HPI narrative: Pt presents with right sided abdominal pain for several days. Pt says it is tender to light touch. Pain has been constant and worse with movement. Pt denies urinary symptoms or bowel issues. Pt denies rash. Related Data Allergies Allergy/AdvReac Type Severity Reaction Status Date / Time No Known Allergies Allergy Verified 08/08/24 11:32 Review of Systems 2 Review of Systems: All systems reviewed & are unremarkable except as noted in HPI and below PMFSH Past Medical History Medical History Hyperlipidemia Surgical History Surgical History H/O inguinal hernia repair right-sided History of colonoscopy Exam 2 Const: General: healthy appearing and no acute distress Nutritional Appearance: well nourished Orientation/consciousness: patient oriented x3 Limitations: no limitations Resp: Effort & Inspection: normal respiratory effort Auscultation: clear to auscultation bilaterally Cardio: Rate: regular rate Rhythm: regular rhythm GI: GI Palp: Yes Soft to palpation and Yes Tenderness to palpation present (GI) (tender right lateral abdomen to superficial palpation no mass no rlq or ruq) Auscultation: normal bowel sounds : General: Yes bladder normal to palpation Back/Spine/Pelvis: Back: no CVA tenderness Cervical Spine: collar present Skin: General skin exam: normal color Rashes: no rashes Wounds: no wounds Neuro: General: patient oriented x3, moves all extremities, no meningeal signs and no focal motor deficits Speech: normal speech Extrem: General: normal to inspection and no clubbing, cyanosis or edema Psych: Mental Status: mental status grossly normal Affect: normal affect Attitude: cooperative Course Vital Signs Vital signs: Vital Signs Temperature 97.9 F 08/08/24 11:26 Pulse Rate 81 08/08/24 11:26 Respiratory Rate 16 08/08/24 11:26 Blood Pressure 110/73 08/08/24 11:26 Pulse Oximetry 100 08/08/24 11:26 Oxygen Delivery Room Air 08/08/24 11:26 Temperature 97.9 F 08/08/24 11:26 Pulse Rate 60 08/08/24 13:00 Respiratory Rate 18 08/08/24 13:00 Blood Pressure 108/73 08/08/24 13:00 Pulse Oximetry 97 08/08/24 13:00 Oxygen Delivery Room Air 08/08/24 11:26 MDM - Abdominal Pain MDM Narrative Medical decision making narrative: Pt has constant right lateral abdominal pain for a few days. is not over GB or mcburney's. no rash but could still be early shingles and explained this to patient. will get labs and ua and CT to rule out mass or sbo colitis among others. Pt has hernia in abdominal all but no signs of incarceration on ct. will send home on a few norco and referral for surgery Lab Data 08/08/24 11:44 08/08/24 11:44 Labs: Lab Results 08/08/24 08/08/24 Range/Units 11:44 12:18 WBC 4.2 L (4.5-10.0) K/mm3 RBC 5.32 (4.6-6.20) M/mm3 Hgb 14.0 (14.0-18.0) g/dL Hct 42.5 (42.0-52.0) % MCV 79.9 L (80-100) fl MCH 26.3 (26-34) pg MCHC 32.9 (32-36) g/dl RDW 13.5 (11.5-14.5) % Plt Count 173 (150-375) k/mm3 MPV 9.9 (7.4-10.4) fl Immature Gran % (Auto) 0.2 (0-0.5) % Neut % (Auto) 45.0 L (45.5-73.1) % Lymph % (Auto) 41.3 (18.3-44.2) % [place] % (Auto) 11.8 H (2.6-8.5) % Eos % (Auto) 1.2 (0-4.4) % Baso % (Auto) 0.5 (0.2-1.2) % Lymph # (Auto) 1.75 (0.9-3.2) K/mm3 [place] # (Auto) 0.5 (0.1-0.6) K/mm3 Eos # (Auto) 0.1 (0-0.3) K/mm3 Baso # (Auto) 0.0 (0.0-0.1) K/mm3 Abs Immat Gran (auto) 0.01 (0.00-0.031) K/mm3 Absolute Neuts (auto) 1.9 (1.3-6.7) K/mm3 Absolute Nucleated RBC 0.000 (0.0-0.012) K/mm3 Nucleated RBC % 0.0 (0.0-0.2) % Sodium 137 (137-145) mmol/L Potassium 3.9 (3.4-5.0) mmol/L Chloride 104 (98-107) mmol/L Carbon Dioxide 24 (22-30) mmol/L Anion Gap 9 (4-12) mmol/L BUN 14 D (9-20) mg/dL Creatinine 0.55 L (0.7-1.3) mg/dL Estim Creat Clear Calc Not Reportable Estimated GFR > 60 (59 - ) Glucose 97 (65-110) mg/dL Calcium 8.7 (8.4-10.2) mg/dL Total Bilirubin 0.5 (0.2-1.3) mg/dL AST 46 (17-59) U/L ALT 41 (6-50) U/L Alkaline Phosphatase 88 (38-126) U/L Total Protein 8.0 (6.3-8.2) g/dL Albumin 4.4 (3.5-5.1) g/dL Lipase 76 (23-300) U/L Urine Color Yellow (Yellow) Urine Appearance Clear (Clear) Urine pH 5.5 (5.0-9.0) Ur Specific [place] 1.018 (1.001-1.035) Urine Protein Negative (Negative) mg/dL Urine Glucose (UA) Negative (Negative) mg/dL Urine Ketones Negative (Negative) mg/dL Ur Blood (Man) Negative (Negative) Urine Nitrate Negative (Negative) Urine Bilirubin Negative (Negative) Urine Urobilinogen 1.0 (<2.0) mg/dL Leukocyte Esterase Rfl Negative (Negative) SARAH/UL Imaging Data Radiologist's impression: ITS Impressions Abdomen/Pelvis CT 08/08/24 13:04 IMPRESSION: 1. Chronic moderate-sized fat-containing right hernia. No acute intra- abdominal/pelvic process. Discharge Plan Discharge Clinical Impression: Abdominal wall hernia Patient Disposition: Home Condition: Stable Instructions: Antibiotic Form, Ventral Hernia (ED) Patient Language: Slovak Prescriptions: New hydrocodone-acetaminophen 5-325 mg tablet 1 tablet PO Q6H PRN (Reason: pain) Qty: 10 0RF No Action ibuprofen 600 mg tablet 600 mg PO TID PRN (Reason: pain) Qty: 20 0RF Follow-up/Referrals: UNKNOWN,DOCTOR [Primary Care Provider] - Omid Rajput DO [Physician] -
[2024-08-08] MEDS: KETOROLAC 15 MG/ML VIAL (*BKC) IV PUSH (12:59)
[2024-08-08 13:00] VITALS: BP 108/73; PULSE 60; RESP 18; O2SAT 97
== END 2024-08-08 15:24 | disposition home or self-care (01) ==
PROVIDERS: Emergency Medicine; Emergency Provider Emergency Medicine
DX: K40.90 Unilateral inguinal hernia, without obstruction or gangrene, not specified as recurrent (principal); E78.5 Hyperlipidemia, unspecified
CPT/HCPCS: 36415; 74177; 80053; 81003; 83690; 85025; 96374; 99284; J1885; Q9967